=== PATIENT | male | born 1960 | race Hispanic/Latino ===

== ENCOUNTER 2017-03-31 22:43 | Observation (INO) | payer BC ==
[2017-03-31 23:08] VITALS: BMI 45.4
[2017-03-31] MEDS ORDERED: Sodium Chloride 0.9% 1,000 ML IV STA (23:29)
--- NOTE | 2017-03-31 23:36 | ED PDOC ---
Arrival/HPI - General Chief Complaint: GI Problem Time Seen by Provider: 03/31/17 23:02 Historian: Patient - History of Present Illness Narrative History of Present Illness (Text): 03/31/17 23:35 Kyler Barrera is a 56 year old male, whose past medical history includes cardiac ablation for atrial fibrillation, mauro fundoplication, and hypertension, who presents to the Emergency department complaining of diffuse abdominal discomfort since eating a steak sandwich yesterday. Patient reports some diarrhea earlier and subjective fever. Patient denies any chest pain, shortness of breath, nausea, vomiting, urinary symptoms, back pain, neck pain, headache, or any other complaints. Time/Duration: Other (yesterday) Symptom Onset: Gradual Symptom Course: Unchanged Activities at Onset: Light Context: Home Past Medical History - Provider Review Nursing Documentation Reviewed: Yes - Infectious Disease Hx of Infectious Diseases: None - Tetanus Immunization Tetanus Immunization: Unknown - Cardiac Hx Cardiac Disorders: Yes Hx Angina: No Hx Cardiac Arrhythmia: Yes (Afib) Hx Circulatory Problems: No Hx Congestive Heart Failure: No Hx Heart Murmur: No Hx Heart Transplant: No Hx Hypertension: Yes Hx Internal Defibrillator: No Hx Mitral Valve Prolapse: No Hx Pacemaker: No Hx Peripheral Edema: No Hx Peripheral Vascular Disease: No - Pulmonary Hx Respiratory Disorders: No Hx Asthma: Yes Hx Bronchitis: No Hx Chronic Obstructive Pulmonary Disease (COPD): Yes Hx Emphysema: No Hx Pneumonia: No Hx Respiratory Aspiration: No Hx Respiratory Tract Infection: No Hx Sleep Apnea: Yes Hx Tuberculosis: No - Neurological Hx Neurological Disorder: No Hx Alzheimer's Disease: No HX Cerebrovascular Accident: No Hx Dementia: No Hx Dizziness: No Hx Meningitis: No Hx Migraine: No Hx Parkinson's Disease: No Hx Seizures: No Hx Transient Ischemic Attacks (TIA): No - HEENT Hx HEENT Disorder: No Hx Blind: No Hx Cataracts: No Hx Deafness: No Hx Difficulty Chewing: No Hx Epistaxis: No Hx Glaucoma: No Hx Macular Degeneration: No - Renal Hx Renal Disorder: No Hx Dialysis: No Hx Kidney Stones: No Hx Neurogenic Bladder: No Hx Pyelonephritis: No Hx Renal Cancer: No Hx Renal Failure: No - Endocrine/Metabolic Hx Endocrine Disorders: No Hx Adrenal Cancer: No Hx Diabetes Insipidus: No Hx Diabetes Mellitus Type 1: No Hx Diabetes Mellitus Type 2: No Hx Hyperthyroidism: No Hx Hypothyroidism: No Hx Systemic Lupus Erythematosus: No - Hematological/Oncological Hx Blood Disorders: No Hx AIDS: No Hx Anemia: No Hx Cancer: No Hx Chemotherapy: No Hx Cirrhosis: No Hx Hemophilia: No Hx Hepatitis A: No Hx Hepatitis B: No Hx Hepatitis C: No Hx Metastasis: No Hx Shingles: No Hx Sickle Cell Disease: No Hx Unexplained Bleeding: No - Integumentary Hx Dermatological Disorder: No Hx Basal Cell Carcinoma: No Hx Eczema: No Hx Melanoma: No Hx Psoriasis: No Hx Squamous Cell Carcinoma: No - Musculoskeletal/Rheumatological Hx Musculoskeletal Disorders: Yes Hx Arthritis: Yes Hx Back Pain: No Hx Degenerative Joint Disease: No Hx Falls: No Hx Fractures: No Hx Gout: No Hx Herniated Disk: Yes Hx Myasthenia Gravis: No Hx Osteoarthritis: No Hx Osteomyelitis: No Hx Osteoporosis: No Hx Rhabdomyolysis: No Hx Spinal Stenosis: No Hx Unsteady Gait: No - Gastrointestinal Hx Gastrointestinal Disorders: Yes Hx Colostomy: No Hx Crohn's Disease: No Hx Diverticulitis: No Hx Gall Bladder Disease: No Hx Gastroesophageal Reflux: No Hx Gastrointestinal Ulcer: No Hx Ileostomy: No Hx Liver Failure: No Hx Pancreatitis: No HX Swallowing Problems: No Other/Comment: small bowel obstruction - Genitourinary/Gynecological Hx Genitourinary Disorders: No Hx Hematuria: No Hx Incontinence: No Hx Prostate Problems: Yes (enlarge prostate) Hx Sexually Transmitted Diseases: No Hx Urinary Tract Infection: No - Psychiatric Hx Psychophysiologic Disorder: Yes Hx Anxiety: Yes Hx Bipolar Disorder: No Hx Depression: No Hx Emotional Abuse: No Hx Hallucinations: No Hx Panic Disorder: No Hx Post Traumatic Stress Disorder: No Hx Psychosis: No Hx Physical Abuse: No Hx Schizophrenia: No Hx Sexual Abuse: No Hx Substance Use: No - Surgical History Hx Amputation: No Hx Appendectomy: No Hx Cardiac Catheterization: Yes Hx Cholecystectomy: No Hx Coronary Stent: No Hx Gastric Bypass Surgery: No Hx Hysterectomy: No Hx Joint Replacement: No Hx Kidney Transplant: No Hx Liver Transplant: No Hx Mastectomy: No Hx Musculoskeletal Surgery: No Hx Open Heart Surgery: No Hx Orthopedic Surgery: No Hx Splenectomy: No Hx Valve Replacement: No Other/Comment: cardioversion done 2012 and cardio stent placed 2012, hernia repair - Anesthesia Hx Anesthesia: Yes Hx Anesthesia Reactions: No Hx Malignant Hyperthermia: No - Suicidal Assessment Feels Threatened In Home Enviroment: No Family/Social History - Physician Review Nursing Documentation Reviewed: Yes Family/Social History: Unknown Family HX Smoking Status: Former Smoker Hx Alcohol Use: No Hx Substance Use: No Hx Substance Use Treatment: No Allergies/Home Meds Allergies/Adverse Reactions: Allergies cinnamon Allergy (Verified 03/31/17 23:08) SHORTNESS OF BREATH diazepam Allergy (Verified 03/31/17 23:08) RASH Home Medications: Home Meds Medication Instructions Recorded Confirmed Metoprolol Succinate [Toprol XL] 100 mg PO DAILY 11/07/12 03/31/17 amLODIPine [Norvasc] 5 mg PO DAILY 08/18/14 03/31/17 Review of Systems - Physician Review All systems were reviewed & negative as marked: Yes - Review of Systems Constitutional: Fevers Eyes: Normal ENT: Normal Respiratory: Normal. absent: SOB, Cough Cardiovascular: Normal. absent: Chest Pain Gastrointestinal: Abdominal Pain, Diarrhea. absent: Nausea, Vomiting Genitourinary Male: Normal. absent: Dysuria, Frequency, Hematuria, Urinary Output Changes Musculoskeletal: Normal. absent: Back Pain, Neck Pain Skin: Normal. absent: Rash Neurological: Normal. absent: Headache, Dizziness Endocrine: Normal Hemo/Lymphatic: Normal Psychiatric: Normal Physical Exam Vital Signs Reviewed: Yes Vital Signs Temp Pulse Resp BP Pulse Ox 03/31/17 22:44 98.6 F 99 H 18 139/101 H 100 Temperature: Afebrile Blood Pressure: Normal Pulse: Regular Respiratory Rate: Normal Appearance: Positive for: Well-Appearing, Non-Toxic, Comfortable Pain Distress: None Mental Status: Positive for: Alert and Oriented X 3 - Systems Exam Head: Present: Atraumatic, Normocephalic Pupils: Present: PERRL Extroacular Muscles: Present: EOMI Conjunctiva: Present: Normal Mouth: Present: Moist Mucous Membranes Neck: Present: Normal Range of Motion Respiratory/Chest: Present: Clear to Auscultation, Good Air Exchange. No: Respiratory Distress, Accessory Muscle Use Cardiovascular: Present: Regular Rate and Rhythm, Normal S1, S2. No: Murmurs Abdomen: Present: Tenderness (Diffuse abdominal tenderness), Distention (Globus abdomen), Normal Bowel Sounds (Positive bowel sounds). No: Peritoneal Signs Back: Present: Normal Inspection Upper Extremity: Present: Normal Inspection. No: Cyanosis, Edema Lower Extremity: Present: Normal Inspection. No: Edema Neurological: Present: GCS=15, CN II-XII Intact, Speech Normal Skin: Present: Warm, Dry, Normal Color. No: Rashes Psychiatric: Present: Alert, Oriented x 3, Normal Insight, Normal Concentration Medical Decision Making ED Course and Treatment: 03/31/17 23:35 Impression: 56 year old male complaining of diffuse abdominal discomfort, diarrhea, and subjective fever. Plan: -- CT Abdomen and Pelvis with IV contrast -- CXR -- Labs, Lipase -- IV fluids -- Toradol -- Reassess and disposition Progress Notes: 04/01/17 02:06 CXR reviewed, shows no acute processes. 04/01/17 05:01 CT Abdomen and Pelvis shows: Lower thorax: Small hiatal hernia. ABDOMEN: Liver: Fatty liver. Gallbladder and bile ducts: Partially contracted gallbladder the gallbladder wall prominence. Pancreas: Unremarkable. No mass. No ductal dilation. Spleen: Unremarkable. No splenomegaly. Adrenals: Unremarkable. No mass. Kidneys and ureters: There are renal hypodensities too small to characterize. No hydronephrosis. Stomach and bowel: There is distention of stomach duodenum and small bowel loops. The distended small bowel loops with air-fluid level measures 4.0 cm. There is transition in the right mid abdomen seen on image 65 series 3 suspicious for partial versus early small bowel obstruction. Correlation with patient's obstructive symptoms and close clinical surveillance is recommended. Possible duodenal diverticulum. Diverticulosis. No mucosal thickening. Appendix: The appendix is not seen. PELVIS: Bladder: Partially decompressed bladder with bladder wall thickening. Correlation with urinalysis is recommended only if clinical cystitis is suspected. Reproductive: Enlarged prostate gland with calcification. Correlation with digital rectal examination and serum PSA recommended. 04/01/17 05:[address] Antoine, who is aware and agrees with plan. Accepts pt in to his service. Pt will be admitted to [facility] for small bowel obstruction. Requests Dr. Rendon on consult, NPO, and IV fluids. president financial institution paged. 04/01/17 05:33 Case discussed with residential collections programmable logic controller assembler, who is aware and agrees to evaluate pt. - Lab Interpretations Lab Results: 03/31/17 23:42 03/31/17 23:42 Lab Results 03/31/17 23:42: WBC 10.8 D, RBC 5.95, Hgb 16.6, Hct 47.8, MCV 80.3, MCH 27.9, MCHC 34.7, RDW 15.3 H, Plt Count 238, MPV 9.8 03/31/17 23:42: Sodium 138, Potassium 3.6, Chloride 101, Carbon Dioxide 22, Anion Gap 19, BUN 18, Creatinine 0.9, Est GFR ( Amer) > 60, Est GFR (Non- Af Amer) > 60, Random Glucose 153 H, Calcium 9.4, Total Bilirubin 1.8 H, AST 36 , ALT 48, Alkaline Phosphatase 69, Total Protein 7.2, Albumin 4.1, Globulin 3.1 , Albumin/Globulin Ratio 1.3, Lipase 64 I have reviewed the lab results: Yes - RAD Interpretation Radiology Orders: 03/31/17 23:27 CHEST PORTABLE [RAD] Stat 03/31/17 23:29 ABD & PELVIS IV CONTRAST ONLY [CT] Stat Bead Cutter: ED Physician - Medication Orders Current Medication Orders: Sodium Chloride (Sodium Chloride 0.9%) 1,000 mls @ 100 mls/hr IV .Q10H STA Stop: 04/01/17 15:29 Discontinued Medications Hydromorphone HCl (Dilaudid) 1 mg IVP STAT STA Stop: 04/01/17 02:43 Last Admin: 04/01/17 03:10 Dose: 1 mg MAR Pain Assessment Document 04/01/17 03:10 AD (Rec: 04/01/17 03:28 AD [id number]) Pain Reassessment Is this a pain reassessment? No Presence of Pain Presence of Pain Yes Pain Scale Used Pain Scale Used Numeric Description Intensity of Pain at present 8 Pain Behavior Facial Grimacing IVP Administration Document 04/01/17 03:10 AD (Rec: 04/01/17 03:28 AD [id number]) Charges for Administration # of IVP Administrations 1 Sodium Chloride (Sodium Chloride 0.9%) 1,000 mls @ 999 mls/hr IV .Q1H1M STA Stop: 04/01/17 00:29 Last Admin: 03/31/17 23:45 Dose: 999 mls/hr eMAR Start Stop Document 03/31/17 23:45 AD (Rec: 03/31/17 23:57 AD [id number]) Intravenous Solution Start Date 03/31/17 Start Time 23:45 Ketorolac Tromethamine (Toradol) 30 mg IVP ONCE ONE Stop: 03/31/17 23:31 Last Admin: 03/31/17 23:56 Dose: 30 mg MAR Pain Assessment Document 03/31/17 23:56 AD (Rec: 03/31/17 23:56 AD [id number]) Pain Reassessment Is this a pain reassessment? No Presence of Pain Presence of Pain Yes Pain Scale Used Pain Scale Used Numeric Description Intensity of Pain at present 8 Pain Behavior Facial Grimacing IVP Administration Document 03/31/17 23:56 AD (Rec: 03/31/17 23:56 AD [id number]) Charges for Administration # of IVP Administrations 1 Ondansetron HCl (Zofran Inj) 4 mg IVP ONCE ONE Stop: 04/01/17 02:43 Last Admin: 04/01/17 03:01 Dose: 4 mg IVP Administration Document 04/01/17 03:01 AD (Rec: 04/01/17 03:02 AD [id number]) Charges for Administration # of IVP Administrations 1 - Scribe Statement The provider has reviewed the documentation as recorded by the Scribe Radha Restrepo All medical record entries made by the Scribe were at my direction and personally dictated by me. I have reviewed the chart and agree that the record accurately reflects my personal performance of the history, physical exam, medical decision making, and the department course for this patient. I have also personally directed, reviewed, and agree with the discharge instructions and disposition. Disposition/Present on Arrival - Present on Arrival Any Indicators Present on Arrival: No History of DVT/PE: No History of Uncontrolled Diabetes: No Urinary Catheter: No History of Decub. Ulcer: No History Surgical Site Infection Following: None - Disposition Have Diagnosis and Disposition been Completed?: Yes Diagnosis: Small bowel obstruction Disposition: HOSPITALIZED Disposition Time: 05:32 Patient Plan: Admission Patient Problems: Current Active Problems Problem Status Onset Small bowel obstruction Acute Condition: STABLE Forms: [employer] (Syrian)
[2017-03-31 23:55] LABS: HEMOGLOBIN 16.6 g/dL (14.0-18.0); MEAN CELL VOLUME 80.3 fl (80.0-105.0); MEAN CORPUSCULAR HEMOGLOBIN 27.9 pg (25.0-35.0); MEAN CORPUSCULAR HGB CONC 34.7 g/dl (31.0-37.0); MEAN PLATELET VOLUME 9.8 fl (7.0-11.0); RBC 5.95 10^6/uL (3.5-6.1); RED CELL DISTRIBUTION WIDTH 15.3 % (11.5-14.5); WHITE BLOOD COUNT 10.8 10^3/ul (4.5-11.0)
[2017-04-01 00:01] LABS: ALB/GLOB RATIO 1.3 (1.1-1.8); ALBUMIN 4.1 g/dL (3.0-4.8); ALT/SGPT 48 U/L (7-56); AST/SGOT 36 U/L (17-59); BLOOD UREA NITROGEN 18 mg/dL (7-21); CALCIUM 9.4 mg/dL (8.4-10.5); GFR AFRICAN-AMERICAN > 60; GFR NON-AFRICAN AMERICAN > 60; LIPASE 64 U/L (23-300)
[2017-04-01] MEDS ORDERED: Iohexol 350 MG/100 ML VIAL ONE (00:53)
[2017-04-01] MEDS ORDERED: HYDROmorphone 0.5 mg/0.5 ml ISec IVP STA (02:42)
--- NOTE | 2017-04-01 04:52 | CT ---
EXAM: CT Abdomen and Pelvis With Intravenous Contrast CLINICAL HISTORY: 56 years old, male; Pain; Abdominal pain; Generalized TECHNIQUE: Axial computed tomography images of the abdomen and pelvis with intravenous contrast. All CT scans at this facility use one or more dose reduction techniques, viz.: automated exposure control; ma/kV adjustment per patient size (including targeted exams where dose is matched to indication; i.e. head); or iterative reconstruction technique. 697 images are submitted. Coronal and sagittal reformatted images were created and reviewed. Axial reformatted images were created and reviewed. CONTRAST: 96 mL of OMNI 350 administered intravenously. COMPARISON: No relevant prior studies available. FINDINGS: Lower thorax: Small hiatal hernia. ABDOMEN: Liver: Fatty liver. Gallbladder and bile ducts: Partially contracted gallbladder the gallbladder wall prominence. Pancreas: Unremarkable. No mass. No ductal dilation. Spleen: Unremarkable. No splenomegaly. Adrenals: Unremarkable. No mass. Kidneys and ureters: There are renal hypodensities too small to characterize. No hydronephrosis. Stomach and bowel: There is distention of stomach duodenum and small bowel loops. The distended small bowel loops with air-fluid level measures 4.0 cm. There is transition in the right mid abdomen seen on image 65 series 3 suspicious for partial versus early small bowel obstruction. Correlation with patient's obstructive symptoms and close clinical surveillance is recommended. Possible duodenal diverticulum. Diverticulosis. No mucosal thickening. Appendix: The appendix is not seen. PELVIS: Bladder: Partially decompressed bladder with bladder wall thickening. Correlation with urinalysis is recommended only if clinical cystitis is suspected. Reproductive: Enlarged prostate gland with calcification. Correlation with digital rectal examination and serum PSA recommended. ABDOMEN and PELVIS: Intraperitoneal space: Unremarkable. No free air. No significant fluid collection. Bones/joints: Pars defect at L5. Multilevel vacuum degenerative disc disease at L2-L3 and L5-S1 level. No acute fracture. No dislocation. Soft tissues: Bilateral inguinal herniation of fat. Vasculature: Unremarkable. No abdominal aortic aneurysm. Lymph nodes: Unremarkable. No enlarged lymph nodes. IMPRESSION: 1. There is distention of stomach duodenum and small bowel loops. The distended small bowel loops with air-fluid level measures 4.0 cm. There is transition in the right mid abdomen seen on image 65 series 3 suspicious for partial versus early small bowel obstruction. Correlation with patient's obstructive symptoms and close clinical surveillance is recommended.
[2017-04-01] MEDS ORDERED: Sodium Chloride 0.9% 1,000 ML IV STA (05:30)
--- NOTE | 2017-04-01 08:18 | CP.PCM.CON ---
History of Present Illness - History of Present Illness History of Present Illness: Surgery: Dr. Rendon CC: Abd pain HPI: 56M w. pmh of Asthma, HTN, a-fib, enlarged prostate, anxiety, hx of mauro fundoplication presents to ED w. abd pain. Pt states that he began to experience diffuse abd pain starting yesterday evening around 8PM. This occurred soon after eating a steak and cheese sandwich and pt initially thought he had food poisoning. He states that prior to abd pain had multiple episodes of diarrhea which then turned to constipation that was refractory to multiple enemas. However he was still able to pass flatus. He states that the pain is a constant pressure. Pain decreases w. flatus and pain meds. Pt also reports having subjective fever and nausea. PMH: see above PSH: mauro fundoplication, cardiac ablation for afib Meds: MAR reviewed ALL: diazepam SOcial: No ETOH/tobacco/drugs Fhx: Non-contributory Review of Systems - Review of Systems All systems: reviewed and no additional remarkable complaints except (HPI) Past Patient History - Infectious Disease Hx of Infectious Diseases: None - Tetanus Immunizations Tetanus Immunization: Unknown - Past Social History Smoking Status: Former Smoker - CARDIAC Hx Cardiac Disorders: Yes Hx Angina: No Hx Cardia Arrhythmia: Yes (Afib) Hx Circulatory Problems: No Hx Congestive Heart Failure: No Hx Heart Murmur: No Hx Heart Transplant: No Hx Hypertension: Yes Hx Internal Defibrillator: No Hx Mitral Valve Prolapse: No Hx Pacemaker: No Hx Peripheral Edema: No Hx Peripheral Vascular Disease: No - PULMONARY Hx Respiratory Disorders: No Hx Asthma: Yes Hx Bronchitis: No Hx Chronic Obstructive Pulmonary Disease (COPD): Yes Hx Emphysema: No Hx Pneumonia: No Hx Respiratory Aspiration: No Hx Respiratory Tract Infection: No Hx Sleep Apnea: Yes Hx Tuberculosis: No - NEUROLOGICAL Hx Neurological Disorder: No Hx Alzheimer's Disease: No HX Cerebrovascular Accident: No Hx Dementia: No Hx Dizziness: No Hx Meningitis: No Hx Migraine: No Hx Parkinson's Disease: No Hx Seizures: No Hx Transient Ischemic Attacks (TIA): No - HEENT Hx HEENT Problems: No Hx Blind: No Hx Cataracts: No Hx Deafness: No Hx Difficulty Chewing: No Hx Epistaxis: No Hx Glaucoma: No Hx Macular Degeneration: No - RENAL Hx Chronic Kidney Disease: No Hx Dialysis: No Hx Kidney Stones: No Hx Neurogenic Bladder: No Hx Pyelonephritis: No Hx Renal (Kidney) Cancer: No Hx Renal Failure: No - ENDOCRINE/METABOLIC Hx Endocrine Disorders: No Hx Adrenal Cancer: No Hx Diabetes Insipidus: No Hx Diabetes Mellitus Type 1: No Hx Diabetes Mellitus Type 2: No Hx Hyperthyroidism: No Hx Hypothyroidism: No Hx Systemic Lupus Erythematosus: No - HEMATOLOGICAL/ONCOLOGICAL Hx Blood Disorders: No Hx AIDS: No Hx Anemia: No Hx Cancer: No Hx Chemotherapy: No Hx Cirrhosis: No Hx Hemophilia: No Hx Hepatitis A: No Hx Hepatitis B: No Hx Hepatitis C: No Hx Metastesis: No Hx Shingles: No Hx Sickle Cell Disease: No Hx Unexplained Bleeding: No - INTEGUMENTARY Hx Dermatological Problems: No Hx Basil Cell: No Hx Eczema: No Hx Melanoma: No Hx Psoriasis: No Hx Squamous Cell: No - MUSCULOSKELETAL/RHEUMATOLOGICAL Hx Musculoskeletal Disorders: Yes Hx Arthritis: Yes Hx Back Pain: No Hx Degenerative Joint Disease: No Hx Falls: No Hx Fractures: No Hx Gout: No Hx Herniated Disk: Yes Hx Myasthenia Gravis: No Hx Osteoarthritis: No Hx Osteomyelitis: No Hx Osteoporosis: No Hx Rhabdomyolysis: No Hx Spinal Stenosis: No Hx Unsteady Gait: No - GASTROINTESTINAL Hx Gastrointestinal Disorders: Yes Hx Colostomy: No Hx Crohn's Disease: No Hx Diverticulitis: No Hx Gall Bladder Disease: No Hx Gastroesophageal Reflux: No Hx Ileostomy: No Hx Liver Failure: No Hx Pancreatitis: No HX Swallowing Problems: No Other/Comment: small bowel obstruction - GENITOURINARY/GYNECOLOGICAL Hx Genitourinary Disorders: No Hx Hematuria: No Hx Incontinence: No Hx Prostate Problems: Yes (enlarge prostate) Hx Sexually Transmitted Disorders: No Hx Urinary Tract Infection: No - PSYCHIATRIC Hx Psychophysiologic Disorder: Yes Hx Anxiety: Yes Hx Bipolar Disorder: No Hx Depression: No Hx Emotional Abuse: No Hx Hallucinations: No Hx Panic Symptoms: No Hx Post Traumatic Stress Disorder: No Hx Psychosis: No Hx Physical Abuse: No Hx Schizophrenia: No Hx Sexual Abuse: No Hx Substance Use: No - SURGICAL HISTORY Hx Amputation: No Hx Appendectomy: No Hx Cardiac Catheterization: Yes Hx Cholecystectomy: No Hx Coronary Stent: No Hx Gastric Bypass Surgery: No Hx Hysterectomy: No Hx Joint Replacement: No Hx Kidney Transplant: No Hx Liver Transplant: No Hx Mastectomy: No Hx Musculoskeletal Surgery: No Hx Open Heart Surgery: No Hx Orthopedic Surgery: No Hx Splenectomy: No Hx Valve Replacement: No Other/Comment: cardioversion done 2012 and cardio stent placed 2012, hernia repair - ANESTHESIA Hx Anesthesia: Yes Hx Anesthesia Reactions: No Hx Malignant Hyperthermia: No Meds Allergies/Adverse Reactions: Allergies Allergy/AdvReac Type Severity Reaction Status Date / Time cinnamon Allergy SHORTNESS Verified 03/31/17 23:08 OF BREATH diazepam Allergy RASH Verified 03/31/17 23:08 - Medications Medications: Current Medications Amlodipine Besylate (Norvasc) 5 mg PO DAILY [facility] Enoxaparin Sodium (Lovenox) 30 mg SC Q12 BRAIN PRN Reason: Protocol Sodium Chloride (Sodium Chloride 0.9%) 1,000 mls @ 100 mls/hr IV .Q10H STA Stop: 04/01/17 15:29 Last Admin: 04/01/17 05:50 Dose: 100 mls/hr Insulin Human Regular (Humulin R Med) 0 units SC ACHS BRAIN PRN Reason: Protocol Metoprolol Succinate (Toprol Xl) 100 mg PO DAILY [facility] Morphine Sulfate (Morphine) 6 mg IVP Q4H PRN PRN Reason: Pain, moderate (4-7) Ondansetron HCl (Zofran Inj) 4 mg IVP Q4 PRN PRN Reason: Nausea/Vomiting Physical Exam - Constitutional Appears: Non-toxic, No Acute Distress - Head Exam Head Exam: ATRAUMATIC, NORMOCEPHALIC - Eye Exam Eye Exam: EOMI - ENT Exam ENT Exam: Mucous Membranes Moist - Neck Exam Neck exam: Positive for: Full Rom - Respiratory Exam Respiratory Exam: NORMAL BREATHING PATTERN. absent: Accessory Muscle Use, Respiratory Distress - GI/Abdominal Exam GI & Abdominal Exam: Distended, Soft, Tenderness. absent: Firm, Guarding, Rebound, Rigid - Extremities Exam Extremities exam: Negative for: calf tenderness, pedal edema - Neurological Exam Neurological exam: Alert, Oriented x3 - Psychiatric Exam Psychiatric exam: Normal Affect, Normal Mood - Skin Skin Exam: Dry, Normal Color, Warm Results - Vital Signs Recent Vital Signs: Last Vital Signs Temp 99.3 F 04/01/17 07:10 Pulse 84 04/01/17 07:10 Resp 20 04/01/17 07:10 BP 131/91 H 04/01/17 07:10 Pulse Ox 96 04/01/17 07:10 - Labs Result Diagrams: 03/31/17 23:42 03/31/17 23:42 - Imaging and Cardiology CT scan - abdomen Status: Image reviewed by me, Report reviewed by me Assessment & Plan - Assessment and Plan (Free Text) Assessment: 56M w. SBO -Attempts to place NGT were unsuccessful -Recommend bowel rest and serial abd exams -If pain/symptoms worsen will reattempt NGT -IVF -pain meds -anti-emetics -DVT PPX -will d/w attending Zemaitis PGY3
--- NOTE | 2017-04-01 09:22 | RAD ---
HISTORY: abdominal pain COMPARISON: 08/18/2014 FINDINGS: LUNGS: No active pulmonary disease. PLEURA: No significant pleural effusion identified, no pneumothorax apparent. CARDIOVASCULAR: Mild cardiomegaly OSSEOUS STRUCTURES: No significant abnormalities. VISUALIZED UPPER ABDOMEN: Normal. OTHER FINDINGS: None. IMPRESSION: No active disease.
--- NOTE | 2017-04-01 09:32 | CP.PCM.CON ---
<Thelma Land - Last Filed: 04/01/17 09:37> History of Present Illness - History of Present Illness History of Present Illness: PGY4 initial GI consult CC: Abd pain, constipation Kyler Barrera is a 56M w a hx of Asthma, HTN, a-fib, enlarged prostate, anxiety, hx of nadeen fundoplication presents to ED with complaints of abdominal pain, constipation, and diarrhea. Pt states that he began to experience diffuse abd pain starting yesterday evening around 8PM. This occurred soon after eating a steak and cheese sandwich. He states that for the past 2-3 days, he had multiple bout of diarrhea with semiformed stool. He reports that it eventually turned to constipation and he then started to have insidious abd pain. He attempted to use enemas without success. He states that the pain is a constant pressure. Pain decreases w. flatus and pain meds. He had a CT abd in the ER which revealed a possible partial to early complete SBO. He denied any emesis but had nausea. He reports having two BM since admission and significant improvement in abd pain PMH: see above PSH: nadeen fundoplication, cardiac ablation for afib SOcial: No ETOH/tobacco/drugs Fhx: Non-contributory Endo hx: EGD 17 years ago prior to the fundiplication, denies any hx of colonoscopy ROS: other than above ROS is neg Past Patient History - Infectious Disease Hx of Infectious Diseases: None - Tetanus Immunizations Tetanus Immunization: Unknown - Past Social History Smoking Status: Former Smoker - CARDIAC Hx Cardiac Disorders: Yes Hx Angina: No Hx Cardia Arrhythmia: Yes (Afib) Hx Circulatory Problems: No Hx Congestive Heart Failure: No Hx Heart Murmur: No Hx Heart Transplant: No Hx Hypertension: Yes Hx Internal Defibrillator: No Hx Mitral Valve Prolapse: No Hx Pacemaker: No Hx Peripheral Edema: No Hx Peripheral Vascular Disease: No - PULMONARY Hx Respiratory Disorders: No Hx Asthma: Yes Hx Bronchitis: No Hx Chronic Obstructive Pulmonary Disease (COPD): Yes Hx Emphysema: No Hx Pneumonia: No Hx Respiratory Aspiration: No Hx Respiratory Tract Infection: No Hx Sleep Apnea: Yes Hx Tuberculosis: No - NEUROLOGICAL Hx Neurological Disorder: No Hx Alzheimer's Disease: No HX Cerebrovascular Accident: No Hx Dementia: No Hx Dizziness: No Hx Meningitis: No Hx Migraine: No Hx Parkinson's Disease: No Hx Seizures: No Hx Transient Ischemic Attacks (TIA): No - HEENT Hx HEENT Problems: No Hx Blind: No Hx Cataracts: No Hx Deafness: No Hx Difficulty Chewing: No Hx Epistaxis: No Hx Glaucoma: No Hx Macular Degeneration: No - RENAL Hx Chronic Kidney Disease: No Hx Dialysis: No Hx Kidney Stones: No Hx Neurogenic Bladder: No Hx Pyelonephritis: No Hx Renal (Kidney) Cancer: No Hx Renal Failure: No - ENDOCRINE/METABOLIC Hx Endocrine Disorders: No Hx Adrenal Cancer: No Hx Diabetes Insipidus: No Hx Diabetes Mellitus Type 1: No Hx Diabetes Mellitus Type 2: No Hx Hyperthyroidism: No Hx Hypothyroidism: No Hx Systemic Lupus Erythematosus: No - HEMATOLOGICAL/ONCOLOGICAL Hx Blood Disorders: No Hx AIDS: No Hx Anemia: No Hx Cancer: No Hx Chemotherapy: No Hx Cirrhosis: No Hx Hemophilia: No Hx Hepatitis A: No Hx Hepatitis B: No Hx Hepatitis C: No Hx Metastesis: No Hx Shingles: No Hx Sickle Cell Disease: No Hx Unexplained Bleeding: No - INTEGUMENTARY Hx Dermatological Problems: No Hx Basil Cell: No Hx Eczema: No Hx Melanoma: No Hx Psoriasis: No Hx Squamous Cell: No - MUSCULOSKELETAL/RHEUMATOLOGICAL Hx Musculoskeletal Disorders: Yes Hx Arthritis: Yes Hx Back Pain: No Hx Degenerative Joint Disease: No Hx Falls: No Hx Fractures: No Hx Gout: No Hx Herniated Disk: Yes Hx Myasthenia Gravis: No Hx Osteoarthritis: No Hx Osteomyelitis: No Hx Osteoporosis: No Hx Rhabdomyolysis: No Hx Spinal Stenosis: No Hx Unsteady Gait: No - GASTROINTESTINAL Hx Gastrointestinal Disorders: Yes Hx Colostomy: No Hx Crohn's Disease: No Hx Diverticulitis: No Hx Gall Bladder Disease: No Hx Gastroesophageal Reflux: No Hx Ileostomy: No Hx Liver Failure: No Hx Pancreatitis: No HX Swallowing Problems: No Other/Comment: small bowel obstruction - GENITOURINARY/GYNECOLOGICAL Hx Genitourinary Disorders: No Hx Hematuria: No Hx Incontinence: No Hx Prostate Problems: Yes (enlarge prostate) Hx Sexually Transmitted Disorders: No Hx Urinary Tract Infection: No - PSYCHIATRIC Hx Psychophysiologic Disorder: Yes Hx Anxiety: Yes Hx Bipolar Disorder: No Hx Depression: No Hx Emotional Abuse: No Hx Hallucinations: No Hx Panic Symptoms: No Hx Post Traumatic Stress Disorder: No Hx Psychosis: No Hx Physical Abuse: No Hx Schizophrenia: No Hx Sexual Abuse: No Hx Substance Use: No - SURGICAL HISTORY Hx Amputation: No Hx Appendectomy: No Hx Cardiac Catheterization: Yes Hx Cholecystectomy: No Hx Coronary Stent: No Hx Gastric Bypass Surgery: No Hx Hysterectomy: No Hx Joint Replacement: No Hx Kidney Transplant: No Hx Liver Transplant: No Hx Mastectomy: No Hx Musculoskeletal Surgery: No Hx Open Heart Surgery: No Hx Orthopedic Surgery: No Hx Splenectomy: No Hx Valve Replacement: No Other/Comment: cardioversion done 2012 and cardio stent placed 2012, hernia repair - ANESTHESIA Hx Anesthesia: Yes Hx Anesthesia Reactions: No Hx Malignant Hyperthermia: No Meds Allergies/Adverse Reactions: Allergies Allergy/AdvReac Type Severity Reaction Status Date / Time cinnamon Allergy SHORTNESS Verified 03/31/17 23:08 OF BREATH diazepam Allergy RASH Verified 03/31/17 23:08 - Medications Medications: Current Medications Amlodipine Besylate (Norvasc) 5 mg PO DAILY [facility] Enoxaparin Sodium (Lovenox) 30 mg SC Q12 [facility] PRN Reason: Protocol Sodium Chloride (Sodium Chloride 0.9%) 1,000 mls @ 100 mls/hr IV .Q10H STA Stop: 04/01/17 15:29 Last Admin: 04/01/17 05:50 Dose: 100 mls/hr Insulin Human Regular (Humulin R Med) 0 units SC ACHS [facility] PRN Reason: Protocol Metoprolol Succinate (Toprol Xl) 100 mg PO DAILY [facility] Morphine Sulfate (Morphine) 6 mg IVP Q4H PRN PRN Reason: Pain, moderate (4-7) Last Admin: 04/01/17 08:39 Dose: 6 mg Ondansetron HCl (Zofran Inj) 4 mg IVP Q4 PRN PRN Reason: Nausea/Vomiting Physical Exam - Constitutional Appears: Well, No Acute Distress - Head Exam Head Exam: ATRAUMATIC, NORMOCEPHALIC - Eye Exam Eye Exam: Normal appearance - Neck Exam Neck exam: Positive for: Normal Inspection - Respiratory Exam Respiratory Exam: Clear to Auscultation Bilateral, NORMAL BREATHING PATTERN. absent: Rhonchi, Wheezes, Respiratory Distress - Cardiovascular Exam Cardiovascular Exam: REGULAR RHYTHM, +S1, +S2 - GI/Abdominal Exam GI & Abdominal Exam: Distended, Hypoactive Bowel Sounds, Soft. absent: Firm, Guarding, Rebound, Rigid, Tenderness - Extremities Exam Extremities exam: Negative for: joint swelling, pedal edema - Neurological Exam Neurological exam: Alert, Oriented x3 - Psychiatric Exam Psychiatric exam: Normal Affect, Normal Mood - Skin Skin Exam: Dry, Intact, Normal Color, Warm Results - Vital Signs Recent Vital Signs: Last Vital Signs Temp 99.3 F 04/01/17 07:30 Pulse 84 04/01/17 07:30 Resp 20 04/01/17 07:30 BP 131/91 H 04/01/17 07:30 Pulse Ox 96 04/01/17 07:30 - Labs Result Diagrams: 03/31/17 23:42 03/31/17 23:42 Labs: Laboratory Results - last 24 hr 04/01/17 08:44 POC Glucose (mg/dL) 103 Assessment & Plan - Assessment and Plan (Free Text) Assessment: Kyler Ryan is a 56M w/ hx of obesity, Afib, HTN, Hl who presented to the Et with abd pain. Etiology can be 2/2 partial SBO vs constipation Acute on chronic constipation Partial SBO?, resolving Hx of Nadeen Fundiplication Obesity Plan: -start on clears -will add miralax BID with PRN enema -if still nit having sig BM, can add senna at bedtime -recommended colonoscopy as an oupt -rest of plan as per surgery -no need for any GI intervention at this time -CT reviewed, noted dilated stomach and duodenum -Recommend continuing miralax daily as an oupt, and fiber daily D/W Dr. Huerta <Anil Huerta - Last Filed: 04/01/17 09:49> Meds - Medications Medications: Current Medications Amlodipine Besylate (Norvasc) 5 mg PO DAILY [facility] Enoxaparin Sodium (Lovenox) 30 mg SC Q12 BRAIN PRN Reason: Protocol Sodium Chloride (Sodium Chloride 0.9%) 1,000 mls @ 100 mls/hr IV .Q10H STA Stop: 04/01/17 15:29 Last Admin: 04/01/17 05:50 Dose: 100 mls/hr Insulin Human Regular (Humulin R Med) 0 units SC ACHS BRAIN PRN Reason: Protocol Metoprolol Succinate (Toprol Xl) 100 mg PO DAILY [facility] Mineral Oil (Fleet Mineral Oil Enema) 135 ml RC ONCE ONE Stop: 04/01/17 12:01 Ondansetron HCl (Zofran Inj) 4 mg IVP Q4 PRN PRN Reason: Nausea/Vomiting Polyethylene Glycol (Miralax) 17 gm PO BID [facility] Results - Vital Signs Recent Vital Signs: Last Vital Signs Temp 99.3 F 04/01/17 07:30 Pulse 84 04/01/17 07:30 Resp 20 04/01/17 07:30 BP 131/91 H 04/01/17 07:30 Pulse Ox 96 04/01/17 07:30 - Labs Result Diagrams: 03/31/17 23:42 03/31/17 23:42 Labs: Laboratory Results - last 24 hr 04/01/17 08:44 POC Glucose (mg/dL) 103 Attending/Attestation - Attestation I have personally seen and examined this patient.: Yes I have fully participated in the care of the patient.: Yes I have reviewed all pertinent clinical information: Yes Notes (Text): 04/01/17 09:41 I have seen and examined patient with GI fellow. Agree with above documentation with the following additions. In brief, this is a 56 year old male with history of atrial fibrillation s/p cardioversion, asthma, obesity ( BMI 45), GERD s/p nadeen fundoplication > 10 years ago who presents to hospital with sudden onset abdominal pain which started yesterday. Day before yesterday He ate a steak/cheese sandwich and afterwards began to develop abdominal pain, nausea, and diarrhea. Following this he started developing worsening abdominal pain which he describes as 10/10, epigastric, radiating to back. He attempted to give himself an enema at home without benefit and came to hospital. Since arrival, he has had 2 bowel movements, one overnight and one earlier this morning. He denies nausea, weight loss, or rectal bleeding. He does report subjective fever up to 102 yesterday. He had an EGD several years ago prior to fundoplication but no prior colonoscopy. Family history: reviewed, patient denies history of GI malignancies Additional physical examination: Abdomen: no palpable hepato/splenomegaly Obesity Atrial fibrillation GERD s/p fundoplication Asthma Abdominal pain CT imaging reviewed by me showing dilated stomach and small bowel loops with air /fluid levels suggestive of partial SBO - Clear liquid diet as tolerated - Pain control - Suggest addition of stool softner therapy and miralax for management of constipation - Patient would benefit from elective outpatient colonoscopy following resolution of acute symptoms - Follow up surgical recommendations - Will continue to monitor patient clinical course
[2017-04-01] MEDS: Enoxaparin 30 mg Syringe SC SCH ×2 (09:59→22:23)
[2017-04-01] MEDS: Metoprolol Succinate 100 mg XL Tab PO SCH (09:59)
[2017-04-01] MEDS ORDERED: Morphine 2 mg/ml ISec IVP PRN (11:36)
[2017-04-01] MEDS ORDERED: Mineral Oil Enema 135 ml RC ONE (12:00)
[2017-04-01] MEDS: POLYETHYLENE GLYCOL 3350 17 GM/Dose PACKET PO SCH (12:59)
[2017-04-01] MEDS: Insulin Reg-MEDIUM-Coverage SC SCH ×2 (14:37→22:21)
--- NOTE | 2017-04-01 17:24 | HP ---
HISTORY OF PRESENT ILLNESS: I have not seen him in a while. He ended up in the emergency room yesterday with diffuse abdominal discomfort. He was eating a steak sandwich the other day. He has some diarrhea, subjective fever. He has been also given himself enema for the past 24 hours and he did have a bowel movement this morning. The CAT scan did show a small bowel obstruction. PAST MEDICAL HISTORY: Includes cardiac ablation for atrial fibrillation, Nadeen fundoplication, hypertension., An NG tube was tried, he had pulled it out. He has no nausea, vomiting, just abdominal pain and distention, not going away. He has AFib, hypertension, asthma, COPD, and sleep apnea. He is morbidly obese. Denies diabetes at this time. He has arthritis, herniated disks. He has gastrointestinal disorders, small bowel obstruction history, very large prostate, anxiety, cardiac catheterizations in the past, cardioversion done in 2012. Cardiac stent placed in 2012, hernia repair. He did have a fundoplication ablation, former smoker, hypertension in the family. No alcohol. No drugs. ALLERGIES: SINEMET AND VALIUM. MEDICATIONS: He is on Toprol and Norvasc. No acute vision changes. No hearing changes. No sore throat. No chest pain or shortness of breath, with severe abdominal pain and diarrhea. No nausea or vomiting. No problems urinating. He has some back pain but none now. Skin for the most part is intact. No rashes or ulcers. He knows about no headaches or dizziness. No anxiety or depression. PHYSICAL EXAMINATION: VITAL SIGNS: He has 98.6 temperature, 99 pulse, 80 respiratory rate, 139/101 blood pressure, 100% O2 sat. GENERAL: He is well appearing, nontoxic. He is fairly comfortable on medication. He did move his bowels a little bit today. He is alert and oriented x3. HEENT: Head is atraumatic, normocephalic. Pupils are equal and reactive to light and accommodation. Extraocular muscles are intact. Throat is moist. NECK: Supple. HEART: Regular rate. Normal S1, S2. LUNGS: Clear to auscultation bilaterally. ABDOMEN: Diffusely abdominal tenderness and distended. It is very large and abdomen is very obese, morbidly obese, almost no bowel sounds. EXTREMITIES: Legs have no edema. NEUROLOGIC: GCS is 15. Cranial nerves II through XII grossly intact. Normal speech. Alert and oriented x3. Normal insight. SKIN: Warm and dry. No apparent rashes or ulcers appreciated. LYMPH NODES: Thyroid midline. No palpable appreciable lymphadenopathy. He had a CAT scan of the abdomen and pelvis, which showed early partial small bowel obstruction with distention of the stomach and distended small bowel loops with air-fluid levels. He has a 138 sodium, potassium 3.6. BUN 80, creatinine 0.9. GFR is greater than 60. Sugar is 153 which is high, I will put him on insulin coverage. Calcium 9.4. Total bili is 1.8, AST is 36, ALT is 48, alk phos 69, total protein 7.2, albumin is 4.1, lipase is 64. White count 7.8, hemoglobin 16.6, hematocrit 47.8, and platelets of 238. Chest x-ray is pending. He is here for partial small bowel obstruction, constipation, hypertension, high blood sugars. He will have consults with GI and surgery, and will give him Dulcolax suppository, he is n.p.o., IV fluids, and hopefully will get him to improve shortly. Mauricio Antoine DO MTDD
[2017-04-01 18:42] VITALS: RESP 20
[2017-04-02] MEDS: Insulin Reg-MEDIUM-Coverage SC SCH (07:30)
[2017-04-02 07:38] LABS: HEMOGLOBIN 15.1 g/dL (14.0-18.0); MEAN CELL VOLUME 81.6 fl (80.0-105.0); MEAN CORPUSCULAR HEMOGLOBIN 26.9 pg (25.0-35.0); MEAN PLATELET VOLUME 9.8 fl (7.0-11.0); RBC 5.61 10^6/uL (3.5-6.1); RED CELL DISTRIBUTION WIDTH 15.7 % (11.5-14.5); WHITE BLOOD COUNT 6.1 10^3/ul (4.5-11.0)
[2017-04-02 08:13] LABS: ALB/GLOB RATIO 1.2 (1.1-1.8); ALBUMIN 3.6 g/dL (3.0-4.8); ALT/SGPT 45 U/L (7-56); AST/SGOT 34 U/L (17-59); BLOOD UREA NITROGEN 11 mg/dL (7-21); GFR AFRICAN-AMERICAN > 60; GFR NON-AFRICAN AMERICAN > 60
[2017-04-02 08:20] VITALS: BP 129/85; PULSE 85; TEMP 98.6; O2SAT 100
--- NOTE | 2017-04-02 09:55 | CP.PCM.PN ---
Subjective - Date & Time of Evaluation Date of Evaluation: 04/02/17 Time of Evaluation: 09:53 - Subjective Subjective: Gen surgery progress note for Dr Rendon Patient seen and examined at bedside. Patient states he is doing well and that he is passing gas and several bowel movements that he describes as 'water with lumps of stool in it.' Patient is doing well. Objective - Vital Signs/Intake and Output Vital Signs (last 24 hours): Temp Pulse Resp BP Pulse Ox 98.6 F 85 20 129/85 100 04/02/17 07:30 04/02/17 07:30 04/02/17 07:30 04/02/17 07:30 04/02/17 07:30 Intake and Output: 04/02/17 04/02/17 06:59 18:59 Intake Total 300 Balance 300 - Medications Medications: Current Medications Amlodipine Besylate (Norvasc) 5 mg PO DAILY [facility] Last Admin: 04/01/17 10:00 Dose: 5 mg Enoxaparin Sodium (Lovenox) 30 mg SC Q12 [facility] PRN Reason: Protocol Last Admin: 04/01/17 22:23 Dose: 30 mg Insulin Human Regular (Humulin R Med) 0 units SC ACHS [facility] PRN Reason: Protocol Last Admin: 04/02/17 07:30 Dose: Not Given Metoprolol Succinate (Toprol Xl) 100 mg PO DAILY [facility] Last Admin: 04/01/17 09:59 Dose: 100 mg Morphine Sulfate (Morphine) 1 mg IVP Q4H PRN PRN Reason: Pain, severe (8-10) Last Admin: 04/01/17 17:24 Dose: 1 mg Ondansetron HCl (Zofran Inj) 4 mg IVP Q4 PRN PRN Reason: Nausea/Vomiting Polyethylene Glycol (Miralax) 17 gm PO BID [facility] Last Admin: 04/01/17 12:59 Dose: 17 gm - Labs Labs: 04/02/17 07:00 04/02/17 07:00 - Constitutional Appears: Well - Head Exam Head Exam: ATRAUMATIC, NORMAL INSPECTION, NORMOCEPHALIC - Eye Exam Eye Exam: EOMI, Normal appearance, PERRL Pupil Exam: NORMAL ACCOMODATION, PERRL - ENT Exam ENT Exam: Mucous Membranes Moist, Normal Exam - Neck Exam Neck Exam: Full ROM, Normal Inspection. absent: Lymphadenopathy - Respiratory Exam Respiratory Exam: Clear to Ausculation Bilateral, NORMAL BREATHING PATTERN - Cardiovascular Exam Cardiovascular Exam: REGULAR RHYTHM, +S1, +S2. absent: Murmur - GI/Abdominal Exam GI & Abdominal Exam: Soft, Normal Bowel Sounds. absent: Tenderness - Rectal Exam Rectal Exam: NORMAL INSPECTION - Exam Exam: Circumcision, NORMAL INSPECTION External exam: NORMAL EXTERNAL EXAM Speculum exam: NORMAL SPECULUM EXAM Bimanual exam: NORMAL BIMANUAL EXAM - Extremities Exam Extremities Exam: Full ROM, Normal Capillary Refill, Normal Inspection. absent : Joint Swelling, Pedal Edema - Back Exam Back Exam: NORMAL INSPECTION - Neurological Exam Neurological Exam: Alert, Awake, CN II-XII Intact, Normal Gait, Oriented x3 - Psychiatric Exam Psychiatric exam: Normal Affect, Normal Mood - Skin Skin Exam: Dry, Intact, Normal Color, Warm Assessment and Plan - Assessment and Plan (Free Text) Assessment: 56M w. SBO -Patient advanced to regular diet today -pain meds -anti-emetics -DVT PPX -Recs per Dr. Rendon
[2017-04-02] MEDS: POLYETHYLENE GLYCOL 3350 17 GM/Dose PACKET PO SCH (10:03)
[2017-04-02] MEDS: Metoprolol Succinate 100 mg XL Tab PO SCH (10:06)
--- NOTE | 2017-04-03 05:31 | DS ---
HISTORY OF PRESENT ILLNESS: He is resting comfortably in bed. He is eating very well. No more stomach pain. He had 7 bowel movements yesterday. He is very comfortable. I plan on discharging him this morning. PHYSICAL EXAMINATION: VITAL SIGNS: He has a temperature of 98.6, 85 pulse, 129/85 blood pressure, 20 respiratory rate, 97% O2 sat on room air. HEAD: Atraumatic, normocephalic. HEART: Regular rate. LUNGS: Clear to auscultation. ABDOMEN: Soft, obese, nontender. Positive bowel sounds. Less distended. EXTREMITIES: No edema. DISCHARGE MEDICATIONS: He is going to go on the same medications he came in, MiraLax twice a day. LABORATORY DATA: He has a 141 sodium, potassium 3.6, BUN 11, creatinine 0.9, GFR is greater than 60, sugar is 109, calcium is 9, total bilirubin is 1.5, AST is 34, ALT is 45, alkaline phosphatase 61, total protein 6.7. White count 6.1, hemoglobin 15.1, 45.8 hematocrit, with 226 platelets. PLAN: He has been seen by GI, who said he can go home. Surgery, I do not think they are going to do anything. He is eating, passed seven bowel movements, no more abdominal pain, no more distention, and if it okay with them, I will discharge him today, and I will see him in the office in a week. He will continue the same medications, MiraLax twice a day. DISCHARGE DIAGNOSIS: He did have a small bowel obstruction, which resolved. I made him an observation. Mauricio Antoine DO
== END 2017-04-02 12:17 | disposition home or self-care (01) ==
LOC: ED 22:43 → ERH 04-01 05:27 → INTOOBSV 04-01 05:27 → 5RNO 04-01 06:33
PROVIDERS: ADMIT Family Medicine; ATTEND Family Medicine
DX: K56.600 Partial intestinal obstruction, unspecified as to cause (principal); I10 Essential (primary) hypertension; G47.30 Sleep apnea, unspecified; I48.91 Unspecified atrial fibrillation; J44.9 Chronic obstructive pulmonary disease, unspecified; K21.9 Gastro-esophageal reflux disease without esophagitis; E66.01 Morbid (severe) obesity due to excess calories; Z68.42 Body mass index [BMI] 45.0-49.9, adult; N40.0 Benign prostatic hyperplasia without lower urinary tract symptoms; Z87.891 Personal history of nicotine dependence; Z95.5 Presence of coronary angioplasty implant and graft; Z82.49 Family history of ischemic heart disease and other diseases of the circulatory system; Z88.8 Allergy status to other drugs, medicaments and biological substances; Z91.018 Allergy to other foods; R40.2412 Glasgow coma scale score 13-15, at arrival to emergency department; M19.90 Unspecified osteoarthritis, unspecified site
CPT/HCPCS: 36415; 71045; 74177; 80053; 82948; 83690; 85027; 96372; 96374; 96375; 96376; 99285; G0378; J1170; J1650; J1885; J2270; J2405; J7040; Q9967

== ENCOUNTER 2018-04-28 19:13 | Emergency (ER) | payer BC ==
[2018-04-28 19:15] VITALS: BMI 45.4
[2018-04-28 19:24] VITALS: BP 131/89; PULSE 102; RESP 18; TEMP 99; O2SAT 99
[2018-04-28] MEDS ORDERED: Oxycodone/Acetaminophen 5/325 mg Tab PO STA (19:31)
--- NOTE | 2018-04-28 19:31 | ED PDOC ---
Arrival/HPI - General Chief Complaint: Back Pain Time Seen by Provider: 04/28/18 19:16 Historian: Patient - History of Present Illness Narrative History of Present Illness (Text): 04/28/18 19:33 58 year old male, with past medical history of A-fib and hypertension, presents to the ED for evaluation of vesicular rash to his right buttocks today. Patient reports visiting an Urgent Care with the presented symptoms this morning and was diagnosed with shingles and was prescribed Gabapentin and anti-viral medication. Patient states worsening pain to the area, unimproved after taking Tylenol, prompting him to present to the ED for evaluation. patient denies any other somatic complaints. Patient denies any fevers, chills, headache, dizziness, chest pain, shortness of breath, dyspnea on exertion, cough, abdominal pain, nausea, vomiting, diarrhea, back pain, neck pain, or any other complaints. Time/Duration: 24 hours Symptom Onset: Gradual Symptom Course: Unchanged Activities at Onset: Light Context: Home Past Medical History - Provider Review Nursing Documentation Reviewed: Yes - Infectious Disease Hx of Infectious Diseases: None - Tetanus Immunization Tetanus Immunization: Unknown - Cardiac Hx Cardiac Disorders: Yes Hx Angina: No Hx Cardiac Arrhythmia: Yes (Afib) Hx Circulatory Problems: No Hx Congestive Heart Failure: No Hx Heart Murmur: No Hx Heart Transplant: No Hx Hypertension: Yes Hx Internal Defibrillator: No Hx Mitral Valve Prolapse: No Hx Pacemaker: No Hx Peripheral Edema: No Hx Peripheral Vascular Disease: No - Pulmonary Hx Respiratory Disorders: No Hx Asthma: Yes Hx Bronchitis: No Hx Chronic Obstructive Pulmonary Disease (COPD): Yes Hx Emphysema: No Hx Pneumonia: No Hx Respiratory Aspiration: No Hx Respiratory Tract Infection: No Hx Sleep Apnea: Yes Hx Tuberculosis: No - Neurological Hx Neurological Disorder: No Hx Alzheimer's Disease: No HX Cerebrovascular Accident: No Hx Dementia: No Hx Dizziness: No Hx Meningitis: No Hx Migraine: No Hx Parkinson's Disease: No Hx Seizures: No Hx Transient Ischemic Attacks (TIA): No - HEENT Hx HEENT Disorder: No Hx Blind: No Hx Cataracts: No Hx Deafness: No Hx Difficulty Chewing: No Hx Epistaxis: No Hx Glaucoma: No Hx Macular Degeneration: No - Renal Hx Renal Disorder: No Hx Dialysis: No Hx Kidney Stones: No Hx Neurogenic Bladder: No Hx Pyelonephritis: No Hx Renal Cancer: No Hx Renal Failure: No - Endocrine/Metabolic Hx Endocrine Disorders: No Hx Adrenal Cancer: No Hx Diabetes Insipidus: No Hx Diabetes Mellitus Type 1: No Hx Diabetes Mellitus Type 2: No Hx Hyperthyroidism: No Hx Hypothyroidism: No Hx Systemic Lupus Erythematosus: No - Hematological/Oncological Hx Blood Disorders: No Hx AIDS: No Hx Anemia: No Hx Cancer: No Hx Chemotherapy: No Hx Cirrhosis: No Hx Hemophilia: No Hx Hepatitis A: No Hx Hepatitis B: No Hx Hepatitis C: No Hx Metastasis: No Hx Shingles: No Hx Sickle Cell Disease: No Hx Unexplained Bleeding: No - Integumentary Hx Dermatological Disorder: No Hx Basal Cell Carcinoma: No Hx Eczema: No Hx Melanoma: No Hx Psoriasis: No Hx Squamous Cell Carcinoma: No - Musculoskeletal/Rheumatological Hx Musculoskeletal Disorders: Yes Hx Arthritis: Yes Hx Back Pain: No Hx Degenerative Joint Disease: No Hx Falls: No Hx Fractures: No Hx Gout: No Hx Herniated Disk: Yes Hx Myasthenia Gravis: No Hx Osteoarthritis: No Hx Osteomyelitis: No Hx Osteoporosis: No Hx Rhabdomyolysis: No Hx Spinal Stenosis: No Hx Unsteady Gait: No - Gastrointestinal Hx Gastrointestinal Disorders: Yes Hx Colostomy: No Hx Crohn's Disease: No Hx Diverticulitis: No Hx Gall Bladder Disease: No Hx Gastroesophageal Reflux: No Hx Ileostomy: No Hx Liver Failure: No Hx Pancreatitis: No HX Swallowing Problems: No Other/Comment: small bowel obstruction - Genitourinary/Gynecological Hx Genitourinary Disorders: No Hx Hematuria: No Hx Incontinence: No Hx Prostate Problems: Yes (enlarge prostate) Hx Sexually Transmitted Diseases: No Hx Urinary Tract Infection: No - Psychiatric Hx Psychophysiologic Disorder: Yes Hx Anxiety: Yes Hx Bipolar Disorder: No Hx Depression: No Hx Emotional Abuse: No Hx Hallucinations: No Hx Panic Disorder: No Hx Post Traumatic Stress Disorder: No Hx Psychosis: No Hx Physical Abuse: No Hx Schizophrenia: No Hx Sexual Abuse: No Hx Substance Use: No - Surgical History Hx Amputation: No Hx Appendectomy: No Hx Cardiac Catheterization: Yes Hx Cholecystectomy: No Hx Coronary Stent: No Hx Gastric Bypass Surgery: No Hx Hysterectomy: No Hx Joint Replacement: No Hx Kidney Transplant: No Hx Liver Transplant: No Hx Mastectomy: No Hx Musculoskeletal Surgery: No Hx Open Heart Surgery: No Hx Orthopedic Surgery: No Hx Splenectomy: No Hx Valve Replacement: No Other/Comment: cardioversion done 2012 and cardio stent placed 2012, hernia repair - Anesthesia Hx Anesthesia: Yes Hx Anesthesia Reactions: No Hx Malignant Hyperthermia: No - Suicidal Assessment Feels Threatened In Home Enviroment: No Family/Social History - Physician Review Nursing Documentation Reviewed: Yes Family/Social History: Unknown Family HX Smoking Status: Never Smoked Hx Alcohol Use: No Hx Substance Use: No Hx Substance Use Treatment: No Allergies/Home Meds Allergies/Adverse Reactions: Allergies cinnamon Allergy (Verified 04/28/18 19:21) SHORTNESS OF BREATH diazepam Allergy (Verified 04/28/18 19:21) RASH Home Medications: Home Meds Medication Instructions Recorded Confirmed Metoprolol Succinate XL [Toprol XL] 100 mg PO DAILY 11/07/12 03/31/17 amLODIPine [Norvasc] 5 mg PO DAILY 08/18/14 03/31/17 Aspirin 325 mg PO DAILY 04/01/17 04/01/17 Review of Systems - Review of Systems Constitutional: absent: Fevers Respiratory: absent: SOB, Cough Cardiovascular: absent: Chest Pain Gastrointestinal: absent: Abdominal Pain, Diarrhea, Nausea, Vomiting Genitourinary Male: absent: Dysuria, Urinary Output Changes Musculoskeletal: absent: Back Pain, Neck Pain Skin: Rash Neurological: absent: Headache, Dizziness Endocrine: absent: Diaphoresis Psychiatric: absent: Anxiety Physical Exam Vital Signs Reviewed: Yes Vital Signs Temp Pulse Resp BP Pulse Ox 04/28/18 19:23 99.0 F 102 H 18 131/89 99 Temperature: Afebrile Blood Pressure: Normal Pulse: Regular Respiratory Rate: Normal Appearance: Positive for: Well-Appearing, Non-Toxic, Comfortable Pain Distress: None Mental Status: Positive for: Alert and Oriented X 3 - Systems Exam Head: Present: Atraumatic, Normocephalic Pupils: Present: PERRL Extroacular Muscles: Present: EOMI Conjunctiva: Present: Normal Back: Present: Other (Vesicular rash following S2 dermatom distribution appreciated to right buttocks.) Upper Extremity: Present: Normal Inspection. No: Cyanosis, Edema Lower Extremity: Present: Normal Inspection. No: Edema Neurological: Present: GCS=15, Speech Normal Skin: Present: Warm, Dry, Other (Vesicular rash on erythematous base following S2 dermatomal distribution appreciated to right buttocks.) Psychiatric: Present: Alert, Oriented x 3, Normal Insight, Normal Concentration Medical Decision Making ED Course and Treatment: 03/18/19 19:41 Impression: 58 year old male presents to the ED for evaluation of vesicular rash to right buttocks. Already on antivirals. Just requesting pain medication. Plan: -- Percocet -- Reassess and disposition Prior Visits: Notes and results from previous visits were reviewed. - Scribe Statement The provider has reviewed the documentation as recorded by the Scribe Lianet Zuluaga. All medical record entries made by the Scribe were at my direction and personally dictated by me. I have reviewed the chart and agree that the record accurately reflects my personal performance of the history, physical exam, medical decision making, and the department course for this patient. I have also personally directed, reviewed, and agree with the discharge instructions and disposition. Disposition/Present on Arrival - Present on Arrival Any Indicators Present on Arrival: No History of DVT/PE: No History of Uncontrolled Diabetes: No Urinary Catheter: No History of Decub. Ulcer: No History Surgical Site Infection Following: None - Disposition Have Diagnosis and Disposition been Completed?: Yes Diagnosis: Shingles Disposition: HOME/ ROUTINE Disposition Time: 19:32 Patient Plan: Discharge Patient Problems: Current Active Problems Problem Status Onset Shingles Acute Condition: GOOD Discharge Instructions (ExitCare): Shingles (ED) Additional Instructions: Continue taking antiviral and gabapentin. Return to ED if condition worsens. Take percocet for pain if motrin does not work. Prescriptions: oxyCODONE/Acetaminophen [Percocet 5/325 mg Tab] 1 ea PO Q6 PRN #20 tab PRN Reason: Pain, Severe (8-10) Forms: [employer] ([place])
== END 2018-04-28 20:45 | disposition home or self-care (01) ==
LOC: ED 19:13
DX: B02.9 Zoster without complications (principal)